=== PATIENT | female | born 1970 | race Caucasian/White ===

== ENCOUNTER 2016-06-26 18:16 | Inpatient (IN) | payer MEDICARE, OTHER ==
[~2016-06-26] VITALS: Ht 160 cm; Wt 96.6 kg
[2016-06-26 19:56] LABS: HEMOGLOBIN 14.4 gm/dl (12.3-15.3); RED BLOOD COUNT 4.68 M/UL (4.00-5.10); WHITE BLOOD COUNT 20.8 K/UL (4.5-11.0)
[2016-06-27] MEDS ORDERED: DURAGESIC 50 MCG1 EA TD (05:02)
[2016-06-27] MEDS ORDERED: ATIVAN 1MG TABLE1 MG PO (05:03)
[2016-06-27] MEDS ORDERED: WELLBUTRIN XL150 MG PO (05:04)
[2016-06-27] MEDS ORDERED: LORTAB 5-325 M1 EACH PO (05:04)
[2016-06-27] MEDS ORDERED: LOPRESSOR 25 MG25 MG PO (05:05)
[2016-06-27] MEDS ORDERED: CELEXA40 MG PO (05:05)
[2016-06-27] MEDS ORDERED: ELAVIL 25 MG TA25 MG PO (05:06)
[2016-06-27] MEDS ORDERED: LISINOPRIL10 MG PO (05:06)
[2016-06-27] MEDS ORDERED: REQUIP1 MG PO (05:06)
[2016-06-27] MEDS ORDERED: PHENERGAN 25 MG25 M1 PO (05:07)
[2016-06-27] MEDS ORDERED: NEURONTIN 400400 MG PO (05:07)
[2016-06-27] MEDS ORDERED: ARIMIDEX 1 MG TA1 MG PO (05:07)
[2016-06-27 05:42] LABS: BUN/CREATININE RATIO 18 (0-10)
[2016-06-28 06:39] LABS: BUN/CREATININE RATIO 19 (0-10)
[2016-06-28 07:18] LABS: HEMOGLOBIN 12.7 gm/dl (12.3-15.3); WHITE BLOOD COUNT 20.3 K/UL (4.5-11.0)
[2016-06-28 07:25] LABS: RED BLOOD COUNT 4.08 M/UL (4.00-5.10)
[2016-06-29 05:13] LABS: HEMOGLOBIN 11.8 gm/dl (12.3-15.3); RED BLOOD COUNT 3.81 M/UL (4.00-5.10)
[2016-06-29 05:32] LABS: BUN/CREATININE RATIO 19 (0-10)
[2016-06-30 04:49] LABS: HEMOGLOBIN 11.3 gm/dl (12.3-15.3); RED BLOOD COUNT 3.66 M/UL (4.00-5.10); WHITE BLOOD COUNT 13.9 K/UL (4.5-11.0)
[2016-06-30 05:12] LABS: BUN/CREATININE RATIO 17 (0-10)
[2016-07-01 04:50] LABS: HEMOGLOBIN 10.8 gm/dl (12.3-15.3); RED BLOOD COUNT 3.49 M/UL (4.00-5.10)
[2016-07-01 05:07] LABS: BUN/CREATININE RATIO 18 (0-10)
[2016-07-02 04:56] LABS: HEMOGLOBIN 10.7 gm/dl (12.3-15.3); RED BLOOD COUNT 3.47 M/UL (4.00-5.10); WHITE BLOOD COUNT 13.8 K/UL (4.5-11.0)
[2016-07-02 05:14] LABS: BUN/CREATININE RATIO 18 (0-10)
[2016-07-02] MEDS ORDERED: GLUCOTROL5 MG PO (14:33)
== END 2016-07-02 15:15 | disposition home health service (06) | DRG 637 ==
LOC: ER1 18:16 → CCU 06-27 01:30 → ZEROF 06-27 01:30 → MED SURG 4 06-27 01:30 → CCU 06-27 04:53 → MED SURG 4 06-27 15:06
PROVIDERS: Family Medicine; Internal Medicine; Physician Assistant Medical; ADMIT Family Medicine
DX: E11.65 Type 2 diabetes mellitus with hyperglycemia (principal); G93.41 Metabolic encephalopathy; E87.1 Hypo-osmolality and hyponatremia; M62.82 Rhabdomyolysis; F13.20 Sedative, hypnotic or anxiolytic dependence, uncomplicated; N17.9 Acute kidney failure, unspecified; K73.2 Chronic active hepatitis, not elsewhere classified; K59.00 Constipation, unspecified; R39.2 Extrarenal uremia; I10 Essential (primary) hypertension; T45.1X5A Adverse effect of antineoplastic and immunosuppressive drugs, initial encounter; Y92.538 Other ambulatory health services establishments as the place of occurrence of the external cause; Z85.3 Personal history of malignant neoplasm of breast; F17.210 Nicotine dependence, cigarettes, uncomplicated; Z90.11 Acquired absence of right breast and nipple; E86.0 Dehydration; G62.9 Polyneuropathy, unspecified; R23.8 Other skin changes; E66.9 Obesity, unspecified; Z68.37 Body mass index [BMI] 37.0-37.9, adult; Z90.81 Acquired absence of spleen; Z91.81 History of falling; G25.81 Restless legs syndrome; F32.9 Major depressive disorder, single episode, unspecified; F41.9 Anxiety disorder, unspecified; G89.29 Other chronic pain; Z79.891 Long term (current) use of opiate analgesic; Z79.1 Long term (current) use of non-steroidal anti-inflammatories (NSAID); Z79.899 Other long term (current) drug therapy; Z88.5 Allergy status to narcotic agent
CPT/HCPCS: 36415; 51702; 70450; 71010; 73630; 80048; 80053; 81001; 82009; 82150; 82550; 82553; 82607; 82746; 82800; 82947; 82962; 83036; 83605; 83690; 83874; 84132; 84484; 84681; 84703; 85025; 85027; 87040; 96361; 96374; 96375; 97110; 97530; 97535; 99291; J1650; J1815; J2310; J2405; J2543; J7030; J7050; Q0163

== ENCOUNTER → 2016-08-02 | Outpatient (CLI) | payer MEDICARE, OTHER ==
[~2016-08-02] MED LIST: ARIMIDEX 1 MG TA1 MG PO; ATIVAN 1MG TABLE1 MG PO; CELEXA40 MG PO; DURAGESIC 50 MCG1 EA TD; ELAVIL 25 MG TA25 MG PO; GLUCOTROL5 MG PO; LISINOPRIL10 MG PO; LOPRESSOR 25 MG25 MG PO; LORTAB 5-325 M1 EACH PO; NEURONTIN 400400 MG PO; PHENERGAN 25 MG25 M1 PO; REQUIP1 MG PO; WELLBUTRIN XL150 MG PO
== END ==
LOC: KOH-I 15:20
DX: L97.529 Non-pressure chronic ulcer of other part of left foot with unspecified severity (principal); L97.519 Non-pressure chronic ulcer of other part of right foot with unspecified severity
CPT/HCPCS: 73630

== ENCOUNTER 2020-05-16 13:30 | Observation (INO) | payer MEDICARE, OTHER ==
[~2020-05-16] VITALS: Ht 162.6 cm; Wt 78.0 kg
[2020-05-16 16:02] LABS: HEMOGLOBIN 15.9 gm/dl (12.3-15.3); RED BLOOD COUNT 4.49 M/UL (4.00-5.10); WHITE BLOOD COUNT 26.1 K/UL (4.5-11.0)
[2020-05-16 16:41] LABS: BUN/CREATININE RATIO 34 (0-10)
[2020-05-17 03:52] LABS: WHITE BLOOD COUNT 24.9 K/UL (4.5-11.0)
[2020-05-17 03:53] LABS: HEMOGLOBIN 13.1 gm/dl (12.3-15.3); RED BLOOD COUNT 3.83 M/UL (4.00-5.10)
[2020-05-17 04:28] LABS: BUN/CREATININE RATIO 32 (0-10)
[2020-05-17 17:28] LABS: BUN/CREATININE RATIO 25 (0-10)
== END 2020-05-17 17:33 | disposition left against medical advice (07) ==
LOC: ER1 13:30 → CDU 17:06 → MED SURG 4 19:45
PROVIDERS: Emergency Medicine; Physician Assistant Medical; ADMIT Internal Medicine Infectious Disease
DX: G93.40 Encephalopathy, unspecified (principal); M62.82 Rhabdomyolysis; D72.829 Elevated white blood cell count, unspecified; E11.9 Type 2 diabetes mellitus without complications; I10 Essential (primary) hypertension; F17.210 Nicotine dependence, cigarettes, uncomplicated; Z85.3 Personal history of malignant neoplasm of breast; Z98.890 Other specified postprocedural states; Z79.899 Other long term (current) drug therapy; Z20.822 Contact with and (suspected) exposure to COVID-19
CPT/HCPCS: 36415; 36600; 70450; 71045; 80048; 80053; 80307; 81001; 82550; 82553; 82803; 83605; 83690; 83735; 83874; 83880; 84100; 84439; 84443; 84484; 84703; 85025; 85027; 85610; 85730; 87040; 93005; 96372; 99285; G0378; G0480; J1650; J7030; U0002